=== PATIENT | male | born 1985 | race Hispanic/Latino ===

== ENCOUNTER 2017-10-27 08:14 | Emergency (ER) | payer SELFPAY ==
[2017-10-27] MEDS ORDERED: DEXAMETHASONE 10 MG/ML VIAL ONE (09:20)
[2017-10-27] MEDS ORDERED: KETOROLAC 30 MG/ML INJ ONE (09:21)
[2017-10-27] MEDS ORDERED: DIAZEPAM 10 MG/2 ML INJ SYRINGE ONE (09:23)
[2017-10-27 09:43] LABS: Absolute Lymphocytes (CBC) 2.9 K/uL (0.7-4.9); Absolute Neutrophil 6.5 K/uL (1.8-8.0); Basophils % 0.7 % (0-1.3); Eosinophils % 3.1 % (0-4.4); Hematocrit 42.2 % (39.6-49.0); Lymphocytes % 26.4 % (15.3-44.8); MCV 91.4 fL (80-100); MPV 8.2 fL (7.6-11.3); Monocytes % 9.6 % (3.3-12.3); RBC Red Blood Cell Count 4.62 M/uL (4.33-5.43)
[2017-10-27 09:53] LABS: Bicarbonate 26 mEq/L (21-31); Glucose Level 96 mg/dL (65-120); Potassium 4.1 mEq/L (3.6-5.0); Sodium Level 134 mEq/L (135-145)
[2017-10-27 09:56] LABS: ALT/SGPT 95 IU/L (10-60); AST/SGOT 48 IU/L (10-42); Alkaline Phosphatase 97 IU/L (42-121); BUN Blood Urea Nitrogen 16 mg/dL (6-20); Bilirubin Total 0.4 mg/dL (0.3-1.2); Protein, Total 6.9 g/dL (6.0-8.3)
[2017-10-27 11:58] LABS: Urine Blood TRACE (NEG); Urine Glucose NEGATIVE (NEG); Urine Protein NEGATIVE (NEG); Urine pH 5.5 (5.0-7.0)
[2017-10-27 12:01] LABS: Urine Bacteria <20 /HPF (NONE SEEN); Urine Culture Reflex Order REFLEXED; Urine RBC NONE SEEN /HPF (NONE SEEN)
[2017-10-27 12:03] LABS: Barbiturates NEGATIVE; Benzodiazepines POSITIVE; Cocaine NEGATIVE; METHAMPHETAM NEGATIVE; Opiates NEGATIVE; Phencyclidine NEGATIVE; THC Cannibis NEGATIVE
--- NOTE | 2017-10-27 12:36 | EDPHYS ---
Physician Documentation [facility] Name: Isael Edwards Age: 32 yrs Sex: Male : 1985 Arrival Date: 10/27/2017 Time: 08:15 Bed 5 Private MD: ED Physician Saw Garcia HPI: 10/27 12:19 This 32 yrs old Male presents to ER via Ambulatory with complaints of Arm Pain.wa 12:19 The patient or guardian complains of c/o R arm pain with numbness and tingling from the wa shoulder down for several months. also c/o generalized joint pain x several months. sometimes the knees lock up on him. denies fever, chills, chest pain, cough, SOB. The complaints affect the RUE. Context: denies known injury. Onset: The symptoms/episode began/occurred 6 month(s) ago. Treatment prior to arrival includes: no previous treatment. Modifying factors: The symptoms are alleviated by nothing. the symptoms are aggravated by movement. Associated signs and symptoms: Pertinent positives: numbness, tingling, weakness, of the generalized joints. worse on the right UE, Pertinent negatives: deformity, erythema, fever, nausea, vomiting. Severity of symptoms: At their worst the symptoms were moderate, in the emergency department the symptoms are unchanged. on-going x 6-8 months. The patient has not recently seen a physician. Historical: - Allergies: 08:33 No Known Allergies; hb - Home Meds: 08:33 None [Active]; hb - PMHx: 08:33 None; hb - PSHx: 08:33 None; hb - Immunization history:: Adult Immunizations up to date. - Social history:: Smoking status: Patient uses tobacco products, smokes one-half pack cigarettes per day. - Family history:: not pertinent. - Hospitalizations: : No recent hospitalization is reported. - History obtained from: spouse. ROS: 12:25 Constitutional: Negative for fever, chills, and weight loss, Eyes: Negative for injury, wa pain, redness, and discharge, ENT: Negative for injury, pain, and discharge, Neck: Negative for injury, pain, and swelling, Cardiovascular: Negative for chest pain, palpitations, and edema, Respiratory: Negative for shortness of breath, cough, wheezing, and pleuritic chest pain, Abdomen/GI: Negative for abdominal pain, nausea, vomiting, diarrhea, and constipation, Back: Negative for injury and pain, : Negative for injury, bleeding, discharge, and swelling, Skin: Negative for injury, rash, and discoloration, Psych: Negative for depression, anxiety, suicide ideation, homicidal ideation, and hallucinations. 12:25 MS/extremity: Positive for pain, tenderness, Negative for injury or acute deformity, contusion. 12:25 Neuro: Positive for numbness, tingling to RUE. 12:25 All other systems are negative. Exam: 12:26 Constitutional: This is a well developed, well nourished patient who is awake, alert, wa and in no acute distress. Head/Face: Normocephalic, atraumatic. Eyes: Pupils equal round and reactive to light, extra-ocular motions intact. Lids and lashes normal. Conjunctiva and sclera are non-icteric and not injected. Cornea within normal limits. Periorbital areas with no swelling, redness, or edema. ENT: Nares patent. No nasal discharge, no septal abnormalities noted. Tympanic membranes are normal and external auditory canals are clear. Oropharynx with no redness, swelling, or masses, exudates, or evidence of obstruction, uvula midline. Mucous membranes moist. Neck: Trachea midline, no thyromegaly or masses palpated, and no cervical lymphadenopathy. Supple, full range of motion without nuchal rigidity, or vertebral point tenderness. No Meningismus. Chest/axilla: Normal chest wall appearance and motion. Nontender with no deformity. No lesions are appreciated. Cardiovascular: Regular rate and rhythm with a normal S1 and S2. No gallops, murmurs, or rubs. Normal PMI, no JVD. No pulse deficits. Respiratory: Lungs have equal breath sounds bilaterally, clear to auscultation and percussion. No rales, rhonchi or wheezes noted. No increased work of breathing, no retractions or nasal flaring. Abdomen/GI: Soft, non-tender, with normal bowel sounds. No distension or tympany. No guarding or rebound. No evidence of tenderness throughout. Skin: Warm, dry with normal turgor. Normal color with no rashes, no lesions, and no evidence of cellulitis. Psych: Awake, alert, with orientation to person, place and time. Behavior, mood, and affect are within normal limits. 12:26 Back: pain, that is mild, of the lumbar area, sacrum, left low back and right low back. 12:26 Musculoskeletal/extremity: Extremities: diffusely tender R shoulder, forearm and wrist. no deformity, no swelling. no midline c-spine trenderness. Vital Signs: 08:33 BP 149 / 108; Pulse 93; Resp 16; Temp 98(O); Pulse Ox 100% on R/A; Weight 90.26 kg; hb Height 5 ft. 9 in. (175.26 cm); Pain 9/10; 09:39 BP 136 / 105; Pulse 76; Resp 18; Pulse Ox 99% on R/A; Pain 7/10; ph 10:51 BP 133 / 100; Pulse 74; Resp 18; Pulse Ox 100% on R/A; Pain 9/10; ph 11:51 BP 138 / 99; Pulse 72; Resp 16; Pulse Ox 99% on R/A; Pain 9/10; ph 13:00 BP 136 / 97; Pulse 71; Resp 18; Temp 97.9; Pulse Ox 99% on R/A; ph 08:33 Body Mass Index 29.39 (90.26 kg, 175.26 cm) hb MDM: 08:30 Patient medically screened. al 12:29 Differential diagnosis: radiculopathy? overuse syndrome? 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 consider rheumatologic illness with general inflammatory state. will check baseline labs. will treat with decadron, toradol and valium and reassess. Data reviewed: vital signs. 12:32 Test interpretation: by ED physician or midlevel provider: labs noted for pyuria. mild wa elevation in liver enzymes. . Response to treatment: the patient's symptoms have mildly improved after treatment. Special discussion: will d/c with meds. close f/u with neurology and rheumatology for further eval. 10/27 09:05 Order name: CBC with Diff; Complete Time: 11:00 10/27 09:05 Order name: CMP; Complete Time: 11:00 10/27 09:05 Order name: Urine Microscopic Only; Complete Time: 12:32 10/27 11:01 Order name: UDS al 10/27 11:53 Order name: Urine Dipstick--Ancillary (enter results); Complete Time: 12:02 2 10/27 12:02 Order name: Urine Culture [facility] 10/27 09:05 Order name: IV Saline Lock; Complete Time: 09:35 al 10/27 09:05 Order name: Urine Dipstick-Ancillary (obtain specimen); Complete Time: 19:33 al Administered Medications: 09:34 Drug: Valium 5 mg Route: IVP; Site: left antecubital; ph 10:00 Follow up: Response: No adverse reaction; Pain is decreased ph 09:35 Drug: Decadron - Dexamethasone 10 mg Route: IVP; Site: left antecubital; ph 10:00 Follow up: Response: No adverse reaction ph 09:35 Drug: TORadol 30 mg Route: IVP; Site: left antecubital; ph 10:00 Follow up: Response: No adverse reaction; Pain is decreased ph Disposition: 18 12:35 Discharged to Home. Impression: Right arm pain with radiculopathy, UTI. - Condition is Stable. - Discharge Instructions: Urinary Tract Infection, [id number], Cervical Radiculopathy, [id number]. - Prescriptions for Prednisone 20 mg Oral Tablet - take 2 tablet by ORAL route once daily for 5 days; 10 tablet. Valium 5 mg Oral Tablet - take 1 tablet by ORAL route At bedtime As needed; 5 tablet. Ibuprofen 600 mg Oral Tablet - take 1 tablet by ORAL route every 8 hours As needed take with food; 30 tablet. - Work release form, Medication Reconciliation Form, Thank You Letter, Antibiotic Education, Prescription Opioid Use form. - Follow up: Duncan Zelaya MD; When: 5 - 6 days; Reason: Recheck today's complaints. Follow up: Jermaine Ortiz MD; When: 2 - 3 days. - Notes: follow up with the neurologist for further evaluation. you will also need a referral from your primary doctor to see a gas prover. please swtich arms when at work as overuse of one extremity could potentially be the reason for the pain and numbness in the right upper extremity. take medicines as prescribed Signatures: Dispatcher [employer] EDPebbles Carroll RN RN Mona Jefferson RN RN Saw Garcia MD MD wa
--- NOTE | 2017-10-27 12:36 | ER ---
Nurse's Notes [facility] Name: Isael Edwards Age: 32 yrs Sex: Male : 1985 Arrival Date: 10/27/2017 Time: 08:15 Bed 5 Private MD: Diagnosis: Right arm pain with radiculopathy;UTI Presentation: 10/27 08:32 Presenting complaint: Patient states: Intermittent RIGHT shoulder pain, numbness, and hb tingling that radiates down right arm and hand x 2 -3 months. Denies injury. Transition of care: patient was not received from another setting of care. Onset of symptoms is unknown. Care prior to arrival: None. 08:32 Method Of Arrival: Ambulatory hb 08:32 Acuity: DEIDRA 4 hb Historical: - Allergies: 08:33 No Known Allergies; hb - Home Meds: 08:33 None [Active]; hb - PMHx: 08:33 None; hb - PSHx: 08:33 None; hb - Immunization history:: Adult Immunizations up to date. - Social history:: Smoking status: Patient uses tobacco products, smokes one-half pack cigarettes per day. - Family history:: not pertinent. - Hospitalizations: : No recent hospitalization is reported. - History obtained from: spouse. Screenin:57 Abuse screen: Denies threats or abuse. Denies injuries from another. Nutritional ph screening: No deficits noted. Tuberculosis screening: No symptoms or risk factors identified. Fall Risk None identified. Assessment: 08:45 General: Appears in no apparent distress. uncomfortable, well groomed, Behavior is ph calm, cooperative, appropriate for age. Pain: Complains of pain in right arm. Neuro: Level of Consciousness is awake, alert, obeys commands, Oriented to person, place, time, situation, Reports numbness paresthesias in right arm. Cardiovascular: Capillary refill < 3 seconds in bilateral fingers Patient's skin is warm and dry. Respiratory: Airway is patent Respiratory effort is even, unlabored. Derm: Skin is intact, is healthy with good turgor, Skin is pink, warm \T\ dry. Musculoskeletal: Circulation, motion, and sensation intact. Range of motion: intact in all extremities, Swelling absent. 09:38 Reassessment: Patient appears in no apparent distress at this time. Patient and/or ph family updated on plan of care and expected duration. Pain level reassessed. Patient is alert, oriented x 3, equal unlabored respirations, skin warm/dry/pink. Pt resting quietly, states that numbness and pain to R arm are improving after IV meds, rates pain 7/10 at this time, mother at bedside, awaiting lab results. 10:50 Reassessment: Patient appears in no apparent distress at this time. Patient and/or ph family updated on plan of care and expected duration. Pain level reassessed. Patient is alert, oriented x 3, equal unlabored respirations, skin warm/dry/pink. Pt reports that pain has increased to 9/10, ERP notified. 11:40 Reassessment: Patient appears in no apparent distress at this time. Patient and/or ph family updated on plan of care and expected duration. Pain level reassessed. Pt ambulated to restroom,gait steady, urine sample obtained. 13:10 Reassessment: Patient appears in no apparent distress at this time. Patient and/or ph family updated on plan of care and expected duration. Pain level reassessed. Patient is alert, oriented x 3, equal unlabored respirations, skin warm/dry/pink. Pt discharged home. Vital Signs: 08:33 BP 149 / 108; Pulse 93; Resp 16; Temp 98(O); Pulse Ox 100% on R/A; Weight 90.26 kg; hb Height 5 ft. 9 in. (175.26 cm); Pain 9/10; 09:39 BP 136 / 105; Pulse 76; Resp 18; Pulse Ox 99% on R/A; Pain 7/10; ph 10:51 BP 133 / 100; Pulse 74; Resp 18; Pulse Ox 100% on R/A; Pain 9/10; ph 11:51 BP 138 / 99; Pulse 72; Resp 16; Pulse Ox 99% on R/A; Pain 9/10; ph 13:00 BP 136 / 97; Pulse 71; Resp 18; Temp 97.9; Pulse Ox 99% on R/A; ph 08:33 Body Mass Index 29.39 (90.26 kg, 175.26 cm) hb ED Course: 08:15 Patient arrived in ED. as 08:30 Saw Garcia MD is Attending Physician. wa 08:33 Triage completed. hb 08:33 Arm band placed on right wrist. hb 08:56 Fuentes, Pebbles, RN is Primary Nurse. ph 09:37 No provider procedures requiring assistance completed. Inserted saline lock: 22 gauge ph in left antecubital area, using aseptic technique. 11:50 Patient has correct armband on for positive identification. Bed in low position. Call ph light in reach. Side rails up X 1. Pulse ox on. NIBP on. 12:34 Duncan Zelaya MD is Referral Physician. wa 12:34 Jermaine Ortiz MD is Referral Physician. wa 13:12 IV discontinued, intact, bleeding controlled, No redness/swelling at site. Pressure ph dressing applied. Administered Medications: 09:34 Drug: Valium 5 mg Route: IVP; Site: left antecubital; ph 10:00 Follow up: Response: No adverse reaction; Pain is decreased ph 09:35 Drug: Decadron - Dexamethasone 10 mg Route: IVP; Site: left antecubital; ph 10:00 Follow up: Response: No adverse reaction ph 09:35 Drug: TORadol 30 mg Route: IVP; Site: left antecubital; ph 10:00 Follow up: Response: No adverse reaction; Pain is decreased ph Outcome: 12:35 Discharge ordered by . wa 13:12 Patient left the ED. ph 13:12 Discharged to home ambulatory. ph 13:12 Condition: good 13:12 Discharge instructions given to patient, Instructed on discharge instructions, follow up and referral plans. medication usage, Demonstrated understanding of instructions, follow-up care, medications, Prescriptions given X 3. Signatures: Fatemeh Rosado Patricia, SABI CELESTIN Mona Jefferson RN RN [facility] Hospital[facility] MD MD wa
== END 2017-10-27 13:12 | disposition home or self-care (01) ==
LOC: ER 08:14
DX: M54.10 Radiculopathy, site unspecified (principal); N39.0 Urinary tract infection, site not specified; F17.210 Nicotine dependence, cigarettes, uncomplicated
CPT/HCPCS: 36415; 80053; 80307; 81003; 81015; 85025; 87086; 87088; 96374; 96375; 99284; J1100; J3360

== ENCOUNTER 2021-05-05 12:16 | Emergency (ER) | payer SELFPAY ==
[2021-05-05 13:15] LABS: Absolute Lymphocytes (CBC) 3.2 K/uL (0.7-4.9); Basophils % 0.5 % (0-1.3); Hematocrit 41.9 % (39.6-49.0); Lymphocytes % 26.4 % (15.3-44.8); MPV 8.5 fL (7.6-11.3); RBC Red Blood Cell Count 4.61 M/uL (4.33-5.43)
[2021-05-05 13:17] LABS: Protime INR 0.91
[2021-05-05 13:25] LABS: Urine Blood Negative (Negative); Urine Glucose Negative (Negative); Urine Protein Negative (Negative); Urine pH 8.5 (5.0-7.0)
[2021-05-05 13:35] LABS: ALT/SGPT 30 U/L (12-78); AST/SGOT 22 U/L (15-37); Albumin 4.2 g/dL (3.4-5.0); Alkaline Phosphatase 140 U/L (45-117); BUN Blood Urea Nitrogen 14 mg/dL (7-18); Bicarbonate 31 mmol/L (21-32); Bilirubin Direct < 0.1 mg/dL (0-0.2); Bilirubin Total 0.2 mg/dL (0.2-1.0); Glucose Level 99 mg/dL (74-106); Magnesium 2.4 mg/dL (1.8-2.4); NT PRO-BNP 33 pg/mL (<125); Potassium 4.6 mmol/L (3.5-5.1); Protein, Total 7.7 g/dL (6.4-8.2); Sodium Level 141 mmol/L (136-145); Troponin (Emerg Dept Use Only) < 0.02 ng/mL (0.0-0.045)
[2021-05-05] MEDS ORDERED: LORazepam 2 MG/ML VIAL ONE (13:43)
[2021-05-05 13:44] LABS: Barbiturates NEGATIVE (NEGATIVE); Benzodiazepines NEGATIVE (NEGATIVE); Cocaine NEGATIVE (NEGATIVE); METHAMPHETAM NEGATIVE (NEGATIVE); Methadone NEGATIVE (NEGATIVE); Opiates NEGATIVE (NEGATIVE); Phencyclidine NEGATIVE (NEGATIVE); THC Cannibis NEGATIVE (NEGATIVE)
--- NOTE | 2021-05-05 13:57 | RAD REPORT ---
EXAM DESCRIPTION: CT - Head C Spine Mpr Wo Con - 05/05/2021 1:17 pm CLINICAL HISTORY: Headache and radiculopathy COMPARISON: None. TECHNIQUE: Computed axial tomography of the head and cervical spine was obtained. Sagittal and coronal reconstruction was performed. All CT scans are performed using dose optimization technique as appropriate and may include automated exposure control or mA/KV adjustment according to patient size. FINDINGS: An intracranial bleed is not seen. The ventricles are normal in caliber. An extra-axial fl uid collection is not noted.Fluid within the visualized sinuses and mastoids is not seen A cervical fracture is not visualized. No dislocation is noted. Disc bulge and osteophytes C3-4 resul ting in mild to moderate narrowing of the right neural foramina. IMPRESSION: No acute intracranial abnormality is seen. A cervical fracture is not visualized. 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
--- NOTE | 2021-05-05 15:09 | EDPHYS ---
Physician Documentation [facility] Name: Isael Edwards Age: 35 yrs Sex: Male : 1985 Arrival Date: 05/05/2021 Time: 12:19 Bed 25 Private MD: ED Physician Reena Lares HPI: 05/05 14:56 This 35 yrs old Male presents to ER via Ambulatory with complaints of slurred jmm speech, arm pain/numbness. 15:00 Onset: The symptoms/episode began/occurred gradually, 3 month(s) ago. Associated signs jmm and symptoms: Pertinent positives: headache, Pertinent negatives:. This is a 35-year-old male with no known chronic medical condition presents emerge department with complaints of neck pain bilateral arm pain beginning approximately 3 months ago. Mother states patient came [place] for the first time in 3 months and noticed the patient was stuttering more. Complains of bilateral weakness to the arms. Denies leg pain or weakness. . Historical: - Allergies: 12:38 No Known Allergies; vg1 - Home Meds: 12:38 None [Active]; vg1 - PMHx: 12:38 None; vg1 - PSHx: 12:38 None; vg1 - Immunization history:: Adult Immunizations up to date, Client reports having NOT received the Covid vaccine. - Social history:: Smoking status: Patient reports the use of cigarette tobacco products, smokes one-half pack cigarettes per day. ROS: 15:00 Constitutional: Negative for fever, chills, and weight loss. jm 15:00 Respiratory: Negative for shortness of breath, cough, wheezing, and pleuritic chest pain, Abdomen/GI: Negative for abdominal pain, nausea, vomiting, diarrhea, and constipation. 15:00 Neck: Positive for pain with movement. 15:00 Cardiovascular: Positive for chest pain. 15:00 MS/extremity: Positive for pain. 15:00 All other systems are negative. Exam: 15:00 Radiologist reports: Negative CT noncontrast of the brain jm 15:00 Eyes: EOMI, no conjunctival erythema appreciated ENT: Moist Mucus Membranes Neck: Trachea midline, Supple Chest/axilla: Normal chest wall appearance and motion. Cardiovascular: Regular rate and rhythm. No edema appreciated Respiratory: Normal respirations, no respiratory distress appreciated Abdomen/GI: Non distended, soft Back: Normal ROM Skin: General appearance color normal 15:00 Constitutional: The patient appears alert, awake, anxious. 15:00 Head/face: Exam is negative for obvious evidence of injury or deformity, swelling, tenderness. 15:00 Neck: ROM/movement: pain, that is mild, with any movement. 15:00 Musculoskeletal/extremity: ROM: intact in all extremities. 15:00 Musculoskeletal/extremity: Full bread packer strength of the upper extremities bilaterally. 15:00 Skin: Appearance: Color: normal in color. 15:00 Neuro: Orientation: is normal, Mentation: is normal, Memory: is normal, Motor: is normal. 15:00 Psych: Behavior/mood is pleasant, cooperative, anxious. Vital Signs: 12:32 BP 142 / 101; Pulse 78; Resp 16; Temp 98.6; Pulse Ox 100% ; Weight 68.04 kg; Height 5 vg1 ft. 9 in. (175.26 cm); Pain 7/10; 13:12 BP 117 / 84; Pulse 63; Resp 12; Pulse Ox 100% on R/A; Pain 8/10; ld1 14:09 BP 115 / 82; Pulse 65; Resp 14; Pulse Ox 100% on R/A; ld1 12:32 Body Mass Index 22.15 (68.04 kg, 175.26 cm) vg1 MDM: 13:00 Patient medically screened. [facility] 15:05 Data reviewed: vital signs, nurses notes. Counseling: I had a detailed discussion with joel the patient and/or guardian regarding: the historical points, exam findings, and any diagnostic results supporting the discharge/admit diagnosis, lab results, radiology results, the need for outpatient follow up, to return to the emergency department if symptoms worsen or persist or if there are any questions or concerns that arise at home. ED course: Patient is alert nontoxic in appearance in the ED. Stuttering was appreciated on physical exam but I do not appreciate slurred speech. Patient has no focal weakness I can appreciate on physical exam. CT of the head is negative. Patient most likely does have bulging disc in the cervical spine which is contributing to the bilateral radicular pain goes down both arms. Has no weakness, I am not concerned about an acute process. Patient is advised of the need to follow-up with neurology for further evaluation and otherwise given strict return precautions.. 05/05 13:02 Order name: Basic Metabolic Panel; Complete Time: 13:38 [facility] 05/05 13:02 Order name: CBC with Diff; Complete Time: 13:27 [facility] 05/05 13:02 Order name: LFT's; Complete Time: 13:38 [facility] 05/05 13:02 Order name: Magnesium; Complete Time: 13:38 [facility] 05/05 13:02 Order name: NT PRO-BNP; Complete Time: 13:38 [facility] 05/05 13:02 Order name: PT-INR; Complete Time: 13:27 [facility] 05/05 13:02 Order name: Troponin (emerg Dept Use Only); Complete Time: 13:38 [facility] 05/05 13:02 Order name: EKG; Complete Time: 13:03 [facility] 05/05 13:02 Order name: Cardiac monitoring; Complete Time: 13:05 [facility] 05/05 13:02 Order name: EKG - Nurse/Tech; Complete Time: 13:05 [facility] 05/05 13:02 Order name: Urine Drug Screen; Complete Time: 13:44 [facility] 05/05 13:02 Order name: CT Head C Spine; Complete Time: 14:04 [facility] 05/05 13:25 Order name: Urine Dipstick-Ancillary; Complete Time: 13:27 [facility] 05/05 13:02 Order name: IV Saline Lock; Complete Time: 13:05 [facility] 05/05 13:02 Order name: Labs collected and sent; Complete Time: 13:05 [facility] 05/05 13:02 Order name: O2 Per Protocol; Complete Time: 13:05 [facility] 05/05 13:02 Order name: O2 Sat Monitoring; Complete Time: 13:05 [facility] Administered Medications: 13:28 Drug: Ativan (LORazepam) 1 mg Route: IVP; Site: left antecubital; ld1 13:28 Follow up: Response: No adverse reaction ld1 Disposition: 18:32 Co-signature as Attending Physician, Reena Lares MD PA/LEAD BURNER SUPERVISOR's history reviewed, ma2 patient interviewed, and examined. I agree with assessment and care plan and confirm the diagnosis (es) above. Disposition Summary: 05/05/21 15:08 Discharge Ordered Location: Home [facility] Condition: Stable jmm Diagnosis - Fluency disorder in conditions classified elsewhere jmm - Radiculopathy, cervical region jmm Followup: [facility] - With: Jimmie Shipman MD - When: 2 - 3 days - Reason: Recheck today's complaints, Continuance of care, Re-evaluation by your physician Followup: [facility] - With: Duncan Zelaya MD - When: 2 - 3 days - Reason: Recheck today's complaints, Continuance of care, Re-evaluation by your physician Discharge Instructions: - Discharge Summary Sheet [facility] - Cervical Radiculopathy [facility] Forms: - Medication Reconciliation Form [facility] - Thank You Letter [facility] - Antibiotic Education [facility] - Prescription Opioid Use [facility] Prescriptions: - Zanaflex 4 mg Oral Tablet - take 1 tablet by ORAL route every 8 hours As needed; 20 tablet; Refills: 0, [facility] Product Selection Permitted Signatures: Dispatcher [employer] EDSilver Morgan PA PA Reena Orlando MD MD ma2 Allie Perez RN RN vg1 Rochelle Sim RN RN ld1
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
[2021-05-05 15:29] VITALS: TEMP 98.6; O2SAT 100
[2021-05-05 15:31] VITALS: BP 115/82
== END 2021-05-05 15:18 | disposition home or self-care (01) ==
LOC: ER 12:16
DX: R47.81 Slurred speech (principal); R47.82 Fluency disorder in conditions classified elsewhere; M54.12 Radiculopathy, cervical region; F17.210 Nicotine dependence, cigarettes, uncomplicated
CPT/HCPCS: 36415; 70450; 72125; 80048; 80076; 80307; 81003; 83735; 83880; 84484; 85025; 85610; 93005; 96374; 99285

== ENCOUNTER 2022-07-05 19:45 | Emergency (ER) | payer SELFPAY ==
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
[2022-07-05] MEDS ORDERED: FAMOTIDINE 20 MG/2 ML VIAL IV ONE (20:26)
[2022-07-05] MEDS ORDERED: ONDANSETRON 4 MG/2 ML VIAL ONE (20:26)
[2022-07-05] MEDS ORDERED: HYDROMORPHONE HCL 1 MG/ML INJ ONE (20:26)
[2022-07-05 20:50] LABS: Absolute Lymphocytes (CBC) 2.2 K/uL (0.7-4.9); Hematocrit 43.8 % (39.6-49.0); Lymphocytes % 12.8 % (15.3-44.8); MCV 88.6 fL (80-100); MPV 7.9 fL (7.6-11.3); RBC Red Blood Cell Count 4.95 M/uL (4.33-5.43)
[2022-07-05 21:13] LABS: Albumin 4.1 g/dL (3.4-5.0); Bilirubin Total 0.3 mg/dL (0.2-1.0); Potassium 3.8 mmol/L (3.5-5.1); Protein, Total 8.1 g/dL (6.4-8.2)
--- NOTE | 2022-07-05 21:37 | RAD REPORT ---
EXAM DESCRIPTION: CT - Stone Protocol - 07/05/2022 9:10 pm CLINICAL HISTORY: Abdominal pain. Left flank pain COMPARISON: None. TECHNIQUE: Computed axial tomography of the abdomen pelvis was obtained without oral or IV contrast. Lack of IV and oral contrast limits evaluation of solid organs, appendix, bowel, and vessels. Fraser l reformatted images were obtained and reviewed. All CT scans are performed using dose optimization technique as appropriate and may include automated exposure control or mA/KV adjustment according to patient size. FINDINGS: A renal calculus is not seen. Mild left hydronephrosis. 3 millimeter calculus distal left ureter. Fatty liver Spleen, pancreas and adrenals appear grossly normal There is no evidence of diverticulitis. The appendix appears normal Small umbilical hernia IMPRESSION: 3 millimeter calculus distal left ureter resulting in mild left hydronephrosis
[2022-07-05] MEDS ORDERED: TAMSULOSIN 0.4 MG SR CAP ONE (21:58)
[2022-07-05] MEDS ORDERED: CEFTRIAXONE 1000 MG/VIAL ONE (21:59)
[2022-07-05] MEDS ORDERED: NA CHLORIDE 0.9% 1,000 ML ONE (21:59)
[2022-07-05] MEDS ORDERED: KETOROLAC 30 MG/ML INJ ONE (22:33)
[2022-07-05 23:29] LABS: Urine Blood 3+ (Negative); Urine Glucose Negative (Negative); Urine Protein 1+ (Negative); Urine Specific Gravity >=1.030 (1.005-1.030); Urine pH 5.5 (5.0-7.0)
[2022-07-05 23:54] LABS: Urine Bacteria <20 /HPF (<20); Urine Mucus Slight /HPF (None Seen); Urine RBC >50 /HPF (None Seen)
--- NOTE | 2022-07-06 00:10 | ER ---
Nurse's Notes [facility] Name: Isael Edwards Age: 37 yrs Sex: Male : 1985 Arrival Date: 07/05/2022 Time: 19:48 Bed 13 Private MD: Diagnosis: Calculus of ureter-left Presentation: 07/05 19:59 Chief complaint: Lower abdominal pain that radiates to left low back and left testicle hb since this afternoon. Coronavirus screen: At this time, the client does not indicate any symptoms associated with coronavirus-19. Ebola Screen: No symptoms or risks identified at this time. Initial Sepsis Screen: Does the patient meet any 2 criteria? No. Patient's initial sepsis screen is negative. Does the patient have a suspected source of infection? No. Patient's initial sepsis screen is negative. Risk Assessment: Do you want to hurt yourself or someone else? Patient reports no desire to harm self or others. Onset of symptoms was July 05, 2022. 19:59 Method Of Arrival: Ambulatory hb 19:59 Acuity: DEIDRA 3 hb Historical: - Allergies: 20:00 No Known Allergies; hb - Social history:: Smoking status: unknown. Screenin:14 [facility] ED Fall Risk Assessment (Adult) History of falling in the last 3 months, em6 including since admission No falls in past 3 months (0 pts) Confusion or Disorientation No (0 pts) Intoxicated or Sedated No (0 pts) Impaired Gait No (0 pts) Mobility Assist Device Used No (0 pt) Altered Elimination No (0 pt) Score/Fall Risk Level 0 - 2 = Low Risk Oriented to surroundings, Maintained a safe environment, Educated pt \T\ family on fall prevention, incl call for assistance when getting out of bed, Assessed \T\ reinforced patient's understanding of fall precautions, Provided non-skid footwear, Hourly rounding (assess needs \T\ fall precautionary measures) done, Used ambulatory aids as needed (educated on \T\ assisted with), Used gait belt as appropriate. Abuse screen: Denies threats or abuse. Nutritional screening: No deficits noted. Tuberculosis screening: No symptoms or risk factors identified. Fall Risk Total Buckner Fall Scale indicates No Risk (0-24 pts). 20:14 Humpty Dumpty Scale Fall Assessment Tool (age< 18yrs) Fall Risk Score/ Level. em6 Assessment: 20:12 General: Appears uncomfortable, Behavior is cooperative. Pain: Complains of pain in em6 posterior aspect of right lateral abdomen, left upper quadrant and left lower quadrant Pain currently is 10 out of 10 on a pain scale. Quality of pain is described as sharp, shooting. Neuro: Level of Consciousness is awake, alert, obeys commands, Oriented to person, place, time, situation. Cardiovascular: Patient's skin is warm and dry. Respiratory: Airway is patent Respiratory effort is even, unlabored, Respiratory pattern is regular, symmetrical, Breath sounds are clear bilaterally. GI: Abdomen is non-distended, Bowel sounds present X 4 quads. Abdomen is tender to palpation in left upper quadrant and left lower quadrant. : No signs and/or symptoms were reported regarding the genitourinary system. EENT: No signs and/or symptoms were reported regarding the EENT system. Derm: No signs and/or symptoms reported regarding the dermatologic system. Musculoskeletal: Circulation, motion, and sensation intact. Range of motion: intact in all extremities. 21:10 Reassessment: Patient appears in no apparent distress at this time. No changes from em6 previously documented assessment. Patient and/or family updated on plan of care and expected duration. Pain level reassessed. Patient is alert, oriented x 3, equal unlabored respirations, skin warm/dry/pink. 23:14 Reassessment: Patient and/or family updated on plan of care and expected duration. Pain ll3 level reassessed. Patient is alert, oriented x 3, equal unlabored respirations, skin warm/dry/pink. States pain is 3/10 Patient states symptoms have improved. Vital Signs: 19:59 BP 151 / 108; Pulse 91; Resp 18; Temp 98.4; Pulse Ox 100% on R/A; Weight 104.33 kg; hb Height 5 ft. 9 in. (175.26 cm); Pain 10/10; 21:00 BP 137 / 97; Pulse 85; Resp 18; Pulse Ox 97% on R/A; em6 23:13 BP 141 / 104; Pulse 75; Resp 16; Pulse Ox 99% on R/A; ll3 19:59 Body Mass Index 33.96 (104.33 kg, 175.26 cm) hb ED Course: 19:48 Patient arrived in ED. bp1 19:53 Page, Bora, PA is PHCP. cp 19:53 Raoul Cook MD is Attending Physician. cp 20:00 Triage completed. hb 20:00 Arm band placed on. hb 20:08 Hailee Rosado, RN is Primary Nurse. em6 20:14 Bed in low position. Call light in reach. Side rails up X 1. Pulse ox on. NIBP on. Warm em6 blanket given. 20:40 Inserted saline lock: 20 gauge in right antecubital area, using aseptic technique. em6 Blood collected. 20:42 CBC with Diff Sent. em6 20:42 CMP Sent. em6 20:42 Lipase Sent. em6 21:12 CT Stone Protocol In Process Unspecified. EDMS 07/06 00:08 Zaid Whyte MD is Referral Physician. cp 01:03 No provider procedures requiring assistance completed. IV discontinued, intact, ll3 bleeding controlled, No redness/swelling at site. Pressure dressing applied. Administered Medications: 07/05 20:42 Drug: Pepcid (famotidine) 20 mg Route: IVP; Site: right antecubital; em6 21:27 Follow up: Response: No adverse reaction em6 20:42 Drug: Zofran (Ondansetron) 4 mg Route: IVP; Site: right antecubital; em6 21:26 Follow up: Response: No adverse reaction em6 20:42 Drug: Dilaudid (HYDROmorphone) 1 mg Route: IVP; Site: right antecubital; em6 21:27 Follow up: Response: No adverse reaction; RASS: Alert and Calm (0) em6 22:06 Drug: Flomax (tamsulosin) 0.4 mg Route: PO; ll3 07/06 01:05 Follow up: Response: No adverse reaction ll3 07/05 22:06 Drug: Rocephin (cefTRIAXone) 1 grams Route: IV; Rate: calculated rate; Site: right ll3 antecubital; 07/06 01:05 Follow up: Response: No adverse reaction; IV Status: Completed infusion; IV Intake: [id number] 07/05 22:06 Drug: NS 0.9% 1000 ml Route: IV; Rate: 1 bolus; Site: right antecubital; ll3 07/06 01:04 Follow up: Response: No adverse reaction; IV Status: Completed infusion; IV Intake: ll3 1000ml 07/05 22:40 Drug: Ketorolac 15 mg Route: IVP; Site: right antecubital; ll3 07/06 01:05 Follow up: Response: No adverse reaction ll3 00:57 Drug: DiFLUcan (fluconazole) 200 mg Route: PO; ll3 01:05 Follow up: Response: No adverse reaction ll3 Medication: 01:03 VIS not applicable for this client. ll3 Intake: 01:04 IV: 1000ml; Total: 1000ml. ll3 01:05 IV: 10ml; Total: 1010ml. ll3 Outcome: 00:10 Discharge ordered by . aidan 00:57 Patient left the ED. ll3 01:03 Discharged to home ambulatory. ll3 01:03 Condition: stable 01:03 Discharge instructions given to patient, friend, Instructed on discharge instructions, follow up and referral plans. medication usage, Demonstrated understanding of instructions, follow-up care, medications, Prescriptions given X 4. Signatures: Dispatcher [employer] EDNM Bora Briseno PA PA cp Baxter, Heather, RN RN Chel Shine Lynsea RN RN ll3 Hailee Rosado RN RN em6
--- NOTE | 2022-07-06 00:10 | EDPHYS ---
Physician Documentation [facility] Name: Isael Edwards Age: 37 yrs Sex: Male : 1985 Arrival Date: 07/05/2022 Time: 19:48 Bed 13 Private MD: ED Physician Raoul Cook HPI: 07/05 20:30 This 37 yrs old Male presents to ER via Ambulatory with complaints of Back cp Pain, Abdominal Pain, Testicular Pain. 20:30 The patient presents with abdominal pain in the left lower quadrant. Onset: The cp symptoms/episode began/occurred this morning. The patient presents with pain radiating pain to left lower back. 20:30 Associated signs and symptoms: Pertinent positives: left testicular pain, Pertinent cp negatives: dysuria, fever, numbness. The patient has experienced similar episodes in the past, today's symptoms are similar, to when the patient was apparently diagnosed with kidney stone. Historical: - Allergies: 20:00 No Known Allergies; hb - Social history:: Smoking status: unknown. ROS: 20:35 Constitutional: Negative for body aches, chills, fever, poor PO intake. cp 20:35 Eyes: Negative for injury, pain, redness, and discharge. cp 20:35 Cardiovascular: Negative for chest pain, palpitations. 20:35 Respiratory: Negative for cough, shortness of breath, wheezing. 20:35 Abdomen/GI: Positive for abdominal pain, nausea, Negative for vomiting, diarrhea, constipation. 20:35 Back: Positive for pain at rest. 20:35 : Positive for testicular pain 20:35 Neuro: Negative for altered mental status, dizziness, headache, weakness. 20:35 All other systems are negative. Exam: 20:40 Constitutional: The patient appears in no acute distress, alert, awake, non-toxic, well cp developed, well nourished, uncomfortable. 20:40 Head/Face: Normocephalic, atraumatic. cp 20:40 Eyes: Periorbital structures: appear normal, Conjunctiva: normal, no exudate, no injection, Sclera: no appreciated abnormality, Lids and lashes: appear normal, bilaterally. 20:40 ENT: External ear(s): are unremarkable, Nose: is normal, Mouth: Lips: moist, Oral mucosa: moist, Posterior pharynx: Airway: no evidence of obstruction, patent. 20:40 Chest/axilla: Inspection: normal. 20:40 Cardiovascular: Rate: normal, Rhythm: regular. 20:40 Respiratory: the patient does not display signs of respiratory distress, Respirations: normal, no use of accessory muscles, no retractions, labored breathing, is not present, Breath sounds: are clear throughout, no decreased breath sounds, no stridor, no wheezing. 20:40 Abdomen/GI: Inspection: abdomen appears normal, Bowel sounds: active, all quadrants, Palpation: soft, in all quadrants, moderate abdominal tenderness, in the anterior aspect of right lateral abdomen, posterior aspect of right lateral abdomen and right lower quadrant, rebound tenderness, is not appreciated, involuntary guarding, is not appreciated. 20:40 Neuro: Orientation: to person, place \T\ time. Mentation: is normal, Motor: moves all fours, strength is normal, Sensation: is normal. Vital Signs: 19:59 BP 151 / 108; Pulse 91; Resp 18; Temp 98.4; Pulse Ox 100% on R/A; Weight 104.33 kg; hb Height 5 ft. 9 in. (175.26 cm); Pain 10/10; 21:00 BP 137 / 97; Pulse 85; Resp 18; Pulse Ox 97% on R/A; em6 23:13 BP 141 / 104; Pulse 75; Resp 16; Pulse Ox 99% on R/A; ll3 19:59 Body Mass Index 33.96 (104.33 kg, 175.26 cm) hb MDM: 20:05 Patient medically screened. cp 21:00 Differential diagnosis: diverticulitis, pancreatitis, Pyelonephritis, Testicular cp Torsion, Ureterolithiasis, urinary tract infection. 07/06 00:10 Data reviewed: vital signs, nurses notes, lab test result(s), radiologic studies, CT cp scan. 00:10 Counseling: I had a detailed discussion with the patient and/or guardian regarding: the cp historical points, exam findings, and any diagnostic results supporting the discharge/admit diagnosis, lab results, radiology results, to return to the emergency department if symptoms worsen or persist or if there are any questions or concerns that arise at home. Response to treatment: the patient's symptoms have markedly improved after treatment, and as a result, I will discharge patient. 07/05 20:22 Order name: CBC with Diff; Complete Time: 21:43 cp 07/05 21:43 Interpretation: Normal except: WBC 16.80; MARY JO% 79.0; LYM% 12.8; NEUT A 13.3. cp 07/05 20:22 Order name: CMP; Complete Time: 21:43 cp 07/05 21:43 Interpretation: Normal except: NA 135; GLUC 139; GFR 74; AST 38; ALT 79; ALK 129; GLOB cp 4.0; A/G 1.0. 07/05 20:22 Order name: Lipase; Complete Time: 21:43 cp 07/05 20:22 Order name: Urine Microscopic Only; Complete Time: 23:57 cp 07/05 23:57 Interpretation: Normal except: URBC >50; BYST Trace. cp 07/05 20:22 Order name: CT Stone Protocol; Complete Time: 21:43 cp 07/05 23:29 Order name: Urine Dipstick-Ancillary; Complete Time: 23:57 EDMS 07/05 23:57 Interpretation: Normal except: UBLD 3+; UPROT 1+. cp 07/05 20:22 Order name: IV Saline Lock; Complete Time: 20:42 cp 07/05 20:22 Order name: Labs collected and sent; Complete Time: 20:42 cp 07/05 20:22 Order name: Urine Dipstick-Ancillary (obtain specimen); Complete Time: 00:25 cp 07/05 22:20 Order name: PO challenge; Complete Time: 22:24 cp Administered Medications: 07/05 20:42 Drug: Pepcid (famotidine) 20 mg Route: IVP; Site: right antecubital; em6 21:27 Follow up: Response: No adverse reaction em6 20:42 Drug: Zofran (Ondansetron) 4 mg Route: IVP; Site: right antecubital; em6 21:26 Follow up: Response: No adverse reaction em6 20:42 Drug: Dilaudid (HYDROmorphone) 1 mg Route: IVP; Site: right antecubital; em6 21:27 Follow up: Response: No adverse reaction; RASS: Alert and Calm (0) em6 22:06 Drug: Flomax (tamsulosin) 0.4 mg Route: PO; ll3 07/06 01:05 Follow up: Response: No adverse reaction ll3 07/05 22:06 Drug: Rocephin (cefTRIAXone) 1 grams Route: IV; Rate: calculated rate; Site: right ll3 antecubital; 07/06 01:05 Follow up: Response: No adverse reaction; IV Status: Completed infusion; IV Intake: [id number] 07/05 22:06 Drug: NS 0.9% 1000 ml Route: IV; Rate: 1 bolus; Site: right antecubital; ll3 07/06 01:04 Follow up: Response: No adverse reaction; IV Status: Completed infusion; IV Intake: ll3 1000ml 07/05 22:40 Drug: Ketorolac 15 mg Route: IVP; Site: right antecubital; ll3 07/06 01:05 Follow up: Response: No adverse reaction ll3 00:57 Drug: DiFLUcan (fluconazole) 200 mg Route: PO; ll3 01:05 Follow up: Response: No adverse reaction ll3 Disposition: 04:27 Co-signature as Attending Physician, Raoul Cook MD. rn Disposition Summary: 07/06/22 00:10 Discharge Ordered Location: Home cp Problem: new cp Symptoms: have improved cp Condition: Stable cp Diagnosis - Calculus of ureter - left cp Followup: cp - With: Zaid Whyte MD - When: 2 - 3 days - Reason: pain continues Discharge Instructions: - Discharge Summary Sheet cp - Kidney Stones cp - Renal Colic cp - Dietary Guidelines to Help Prevent Kidney Stones cp Forms: - Medication Reconciliation Form cp - Thank You Letter cp - Antibiotic Education cp - Prescription Opioid Use cp Prescriptions: - Flomax 0.4 mg Oral capsule - take 1 capsule by ORAL route once daily As needed 1/2 hour following the same cp meal each day; 7 capsule; Refills: 0, Product Selection Permitted - Zofran 4 mg Oral Tablet - take 1 tablet by ORAL route every 12 hours As needed; 20 tablet; Refills: 0, cp Product Selection Permitted - Diclofenac Sodium 75 mg Oral tablet,delayed release (DR/EC) - take 1 tablet by ORAL route 2 times per day; 20 tablet; Refills: 0, Product cp Selection Permitted - Tylenol-Codeine #3 300 mg-30 mg Oral - take 2 tablet by ORAL route every 6-8 hours; 14 tablet; Refills: 0, Product cp Selection Permitted Signatures: Dispatcher [employer] EDRaoul Fuentes MD MD rn Bora Briseno PA PA cp Baxter, Heather, RN RN hb Evan Jama, RN RN ll3 Hailee Rosado, RN RN em6
[2022-07-06] MEDS ORDERED: FLUCONAZOLE 100 MG TAB ONE (00:50)
[2022-07-06 01:06] VITALS: TEMP 98.4
[2022-07-06 01:21] VITALS: BP 141/104; O2SAT 99
== END 2022-07-06 00:57 | disposition home or self-care (01) ==
LOC: ER 19:45
DX: N20.1 Calculus of ureter (principal)
CPT/HCPCS: 36415; 74176; 76377; 80053; 81003; 81015; 83690; 85025; 96365; 96366; 96375; 99284; J1170; J2405; J7030